=== PATIENT | male | born 1945 | race Caucasian/White ===

== ENCOUNTER 2018-08-25 10:33 | Emergency (ER) | payer OTHER ==
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
[2018-08-25 11:27] LABS: Absolute Lymphocytes (CBC) 0.9 K/uL (0.7-4.9); Absolute Monocytes 0.6 K/uL (0.1-1.3); Absolute Neutrophil 4.5 K/uL (1.8-8.0); Basophils % 0.4 % (0-1.3); Hematocrit 46.8 % (39.6-49.0); Lymphocytes % 14.8 % (15.3-44.8); MPV 9.4 fL (7.6-11.3); Monocytes % 10.1 % (3.3-12.3)
[2018-08-25 11:39] LABS: Protime INR 3.14
[2018-08-25 11:50] LABS: Potassium 4.4 mmol/L (3.5-5.1)
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
== END 2018-08-25 13:14 | disposition home or self-care (01) ==
LOC: ER 10:33
DX: S06.0X9A Concussion with loss of consciousness of unspecified duration, initial encounter (principal); V89.0XXA Person injured in unspecified motor-vehicle accident, nontraffic, initial encounter; Z79.01 Long term (current) use of anticoagulants; Z91.048 Other nonmedicinal substance allergy status; I10 Essential (primary) hypertension; I48.91 Unspecified atrial fibrillation
CPT/HCPCS: 85025; 80048; 36415; 86900; 86850; 85610; 86901; 82962; 85730; 70450; 72125; 71260; 74177; Q9967; 99284